=== PATIENT | female | born 1945 | race Caucasian/White ===

== ENCOUNTER 2022-07-12 14:56 | Outpatient (CLI) | payer MEDICARE, BC, SELFPAY ==
--- NOTE | 2022-07-12 | BON_PTH ---
PATIENT: MARGARETTE SHAW LOC: [facility] #:[id number] AGE/SX: 77/F ROOM: RE07/12/[address]: Dr. Ildefonso Loving DDS : 1945 BED: DIS: 07/12/2022 SPEC #: [id number] RECD: 07/12/22 14:45 STATUS: ORTEGA MEREDITH #: [id number] DEEPTI: 07/12/22 00:[address]: Ildefonso Loving DEPT: SURGICAL PATHOLOGY RECD BY: Demetrius Trejo Tissues: Maxilla, NOS Procedures: Surgery Specimen Level IV HEADER OPERATION: Biopsy, bone left antrum area PRE-OP DIAGNOSIS: Left maxillary sinus granulation tissue TISSUE SUBMITTED: Left maxillary sinus granulation tissue MICROSCOPIC DIAGNOSIS Left maxillary sinus granulation tissue, biopsy: Fragments of squamous mucosa with chronic inflammation and granulation tissue reaction. NURIA:rich 07/16/2022 MICROSCOPIC DESCRIPTION Slides are reviewed. GROSS DESCRIPTION Received in fixative is one container labeled with the patient's name and designated maxillary sinus. The specimen consists of two fragments of pink hemorrhagic soft tissue measuring 0.8 x 0.6 x 0.2 cm and 0.5 x 0.5 x 0.1 cm. The entire specimen is submitted in one cassette. / SJ:rg 07/13/2022 TC:3 CPT: 03101
== END 2022-07-12 23:59 | disposition home or self-care (01) ==
LOC: LABSPEC 15:09
PROVIDERS: Referring Provider Dentist Oral and Maxillofacial Surgery; Visit Provider Dentist Oral and Maxillofacial Surgery
DX: L92.9 Granulomatous disorder of the skin and subcutaneous tissue, unspecified (principal)
CPT/HCPCS: 88305; 88311